=== PATIENT | male | born 1985 | race Caucasian/White ===

== ENCOUNTER 2018-07-12 08:36 | Emergency (ER) | payer OTHER ==
[~2018-07-12] VITALS: Ht 172.7 cm; Wt 77.1 kg
[2018-07-12] MEDS ORDERED: EFFEXOR XR75 MG PO (09:07)
[2018-07-12] MEDS ORDERED: EFFEXOR 5050 MG/1 T1 PO (09:07)
[2018-07-12] MEDS ORDERED: TRILEPTAL300 MG PO (09:08)
[2018-07-12] MEDS ORDERED: HYDROXYZINE HCL25 M1 PO (09:08)
[2018-07-12 10:50] LABS: ABSOLUTE NEUTROPHILS 6.1 thou/uL (1.4-8.2); BASOPHILS 0.6 % (0.0-2.0); EOSINOPHILS 2.4 % (0.0-3.0); HEMATOCRIT 46.7 % (42.0-52.0); HEMOGLOBIN 15.9 gm/dL (14.0-18.0); LYMPHOCYTES 25.2 % (24.0-44.0); MCH 27.7 pg (26.0-34.0); MCHC 34.1 g/dL (28.0-37.0); MCV 81.1 fL (80.0-100.0); MONOCYTES 8.5 % (1.0-8.0); PLATELET COUNT 191 thou/uL (150-400); POLYS 63.3 % (36.0-66.0); RBC 5.76 mil/uL (4.50-6.00); RDW 12.7 % (10.5-14.5); WBC 9.6 thou/uL (4.0-11.0)
[2018-07-12 10:52] LABS: CALCIUM 9.8 mg/dL (8.5-10.1); CREATININE 1.1 mg/dL (0.7-1.3); POTASSIUM 3.7 mmol/L (3.5-5.1)
[2018-07-12 15:29] LABS: AMP/METHAMP POSITIVE (Negative); BARBITURATES Negative (Negative); BENZODIAZEPINES Negative (Negative); COCAINE Negative (Negative); METHADONE Negative (Negative); OPIATES Negative (Negative); PCP Negative (Negative)
== END 2018-07-12 15:47 | disposition home or self-care (01) ==
LOC: ER 08:36
PROVIDERS: Emergency Medicine
DX: F15.10 Other stimulant abuse, uncomplicated (principal); E86.0 Dehydration; F17.210 Nicotine dependence, cigarettes, uncomplicated; F41.1 Generalized anxiety disorder

== ENCOUNTER 2021-09-02 19:19 | Emergency (ER) | payer OTHER ==
[~2021-09-02] VITALS: Ht 172.7 cm; Wt 99.8 kg
--- NOTE | ~2021-09-02 | EMS ---
[facility] [address] [place] [address] EMS Patient Care Report Name: DANIEL NGUYEN Room #: DEP DAVIES CAMPUSEdgar#: [id number] Admission: 09/02/21 Attend Phys: Discharge: 09/03/21 Date of : [birth year] Report #: [id number] THIS REPORT FOR: //name// Report Transmitted: 09/06/2021 14:54 EMS Care Summary [place], [place]/[facility] Incident [id number] @ 09/02/2021 18:50 Incident Location [id number] [place], [place] [id number] Patient DANIEL NGUYEN Male, 35 Years 1985 Patient Address [address] [place], [place] [id number] Patient History None Reported, Patient Allergies No known allergies, Patient Medications None Reported, Chief Complaint drug overdose Disposition Transported No Lights/[place] Reason Sick Person Transported To [facility] Narrative Upon arrival PT was in the standing position with PD already on scene. PT had a CC of drug overdoses. PT stated that he had ingested 7 grams of mushrooms and is now not feeling well. PT was assisted to stretcher and was assisted to back of ambulance for further medical evaluation and intervention. [facility] [address] [place] [address] EMS Patient Care Report Name: DANIEL NGUYEN Room #: [facility]ian[facility] [id number] Admission: 09/02/21 Attend Phys: Discharge: 09/03/21 Date of : 83 Report #: [id number] Initial Vitals @19:06P: 100,R: 18,BP: 232/119,Pain: 0/10,GCS: 15,Glucose: 85,CO: 1,SpO2: 96,Revised Trauma: 12, @19:13P: 104,R: 18,BP: 214/102,Pain: 0/10,GCS: 15,SpO2: 96,Revised Trauma: 12, Assessments @19:05MENTAL:SKIN:Diaphoresis,HEENT:Head/Face: No Abnormalities,Eyes: No Abnormalities,Neck/Airway: No Abnormalities,LUNG SOUNDS:General: No Abnormalities,Left Upper: No Abnormalities,Right Upper: No Abnormalities,Left Lower: No Abnormalities,Right Lower: No Abnormalities,ABDOMEN:General: No Abnormalities,Left Upper: No Abnormalities,Right Upper: No Abnormalities,Left Lower: No Abnormalities,Right Lower: No Abnormalities,PELVIS//GI:No Abnormalities,EXTREMITIES:Capillary Refill: Left Upper: < 2 Sec,Capillary Refill: Right Upper: < 2 Sec,Left Arm: No Abnormalities,Right Arm: No Abnormalities,Left Leg: No Abnormalities,Right Leg: No Abnormalities,PULSE:Radial: 2+ Normal,NEURO:No Abnormalities, Impression Overdose - Hallucinogens Procedures @19:05 ALS Assessment Response: UnchangedSucceeded Timeline 18:49,Call Received 18:49,Dispatch Notified 18:50,Dispatched 18:51,En Route 19:04,On Scene 19:05,At Patient 19:05,ALS Assessment,Response: UnchangedSucceeded, 19:06,BP: 232/119 M,PULSE: 100,RR: 18 R,SPO2: 96 Ox,ETCO2: ,B,PAIN: 0,GCS: 15, 19:10,Depart Scene 19:13,BP: 214/102 M,PULSE: 104,RR: 18 R,SPO2: 96 Ox,ETCO2: ,BG: ,PAIN: 0,GCS: 15, 19:15,At Destination 19:36,Call Closed Disclaimer v1.1 Copyright 2020 [employer] This EMS Care Summary contains data elements from the applicable legal record (which may be displayed differently). It is designed to provide pertinent information for the following purposes: continuity of care, clinical quality, [facility] [address] [place] [address] EMS Patient Care Report Name: DANIEL NGUYEN Room #: [facility]#: [id number] Admission: 09/02/21 Attend Phys: Discharge: 09/03/21 Date of : [birth year] Report #: [id number] and state data reporting. The complete legal record is available to ED staff and administrators of the receiving hospital in [employer]'s Patient Tracker. All data is provided "as is."
[~2021-09-02 19:19] MED LIST: EFFEXOR 5050 MG/1 T1 PO; EFFEXOR XR75 MG PO; HYDROXYZINE HCL25 M1 PO; TRILEPTAL300 MG PO
[2021-09-02 19:51] LABS: ABSOLUTE NEUTROPHILS 4.3 thou/uL (1.4-8.2); BASOPHILS 0.7 % (0.0-2.0); EOSINOPHILS 0.9 % (0.0-3.0); HEMATOCRIT 47.8 % (42.0-52.0); HEMOGLOBIN 15.6 gm/dL (14.0-18.0); LYMPHOCYTES 24.8 % (24.0-44.0); MCH 26.9 pg (26.0-34.0); MCHC 32.6 g/dL (28.0-37.0); MCV 82.5 fL (80.0-100.0); PLATELET COUNT 173 thou/uL (150-400); POLYS 66.6 % (36.0-66.0); RDW 13.1 % (10.5-14.5); WBC 6.5 thou/uL (4.0-11.0)
[2021-09-02] MEDS ORDERED: ADDERALL XR 1515 MG PO (19:51)
[2021-09-02 20:10] LABS: ANION GAP 13 mmol/L (7-16); BUN 12 mg/dL (7-18); CALCIUM 9.5 mg/dL (8.5-10.1); CHLORIDE 99 mmol/L (98-107); CO2 25 mmol/L (21-32); GLUCOSE 130 mg/dL (74-106); POTASSIUM 4.5 mmol/L (3.5-5.1); SODIUM 137 mmol/L (136-145)
[2021-09-02 20:17] LABS: ALBUMIN 4.4 g/dL (3.4-5.0); DIRECT BILIRUBIN < 0.1 mg/dL (<0.1-0.2); LIPASE 120 U/L (73-393); SGOT 44 U/L (15-37); SGPT 68 U/L (30-65); TOTAL BILIRUBIN 0.3 mg/dL (0.2-1.0); TOTAL PROTEIN 7.6 g/dL (6.4-8.2)
[2021-09-02 20:43] LABS: AMP/METHAMP Negative (Negative); BARBITURATES Negative (Negative); BENZODIAZEPINES Negative (Negative); COCAINE Negative (Negative); METHADONE Negative (Negative); OPIATES Negative (Negative); PCP Negative (Negative)
[2021-09-03 02:34] VITALS: BP 180/93
--- NOTE | 2021-09-06 07:12 | EKG ---
[place] [address] [facility] [place] [address] ELECTROCARDIOGRAM REPORT Name: DANIEL NGUYEN Room #: [facility]#: [id number] Admission: 09/02/21 Attend Phys: Discharge: 09/03/21 Date of : 83 Report #: [id number] [facility] ED Test Date: 2021-09-02 Test Time: 19:32:01 Pat Name: DANIEL NGUYEN Department: Room: Gender: Marketing Automation Specialist: grady : 1985 Requested By: Javi Dunbar Order Number: [id number] MD: Margarito Carson Measurements Intervals [place] Rate: 99 P: 26 MI: 157 QRS: 62 QRSD: 96 T: 6 QT: 343 QTc: 441 Interpretive Statements Sinus rhythm Probable left ventricular hypertrophy ST elev, probable normal early repol pattern No previous ECG available for comparison Electronically Signed On 09-06-2021 7:12:43 AGENCY CASHIER by Margarito Carson [email or web address] <ELECTRONICALLY SIGNED> By: Margarito Carson MD, [facility] 09/06/21 0712 31 31 Margarito Carson MD, FACC /EPI
== END 2021-09-03 02:41 | disposition home or self-care (01) ==
LOC: ER 19:19
PROVIDERS: Student in an Organized Health Care Education/Training Program
DX: T78.1XXA Other adverse food reactions, not elsewhere classified, initial encounter (principal); G93.40 Encephalopathy, unspecified; I10 Essential (primary) hypertension; F41.9 Anxiety disorder, unspecified; F17.210 Nicotine dependence, cigarettes, uncomplicated; Z79.899 Other long term (current) drug therapy; X58.XXXA Exposure to other specified factors, initial encounter